=== PATIENT | female | born 1970 | race Two or more races ===

== ENCOUNTER 2016-08-22 14:14 | Outpatient (CLI) ==
--- NOTE | 2016-08-22 22:05 | MRI ---
EXAM: Lumbar spine MRI without contrast. HISTORY: Low back pain. COMPARISON: None. TECHNIQUE: Multiplanar, multisequence MR images were acquired of the lumbar spine without contrast. FINDINGS: Five lumbar-type vertebra are present. The lumbar vertebra are normal in height, alignme nt and intrinsic bone marrow signal. Marginal osteophytes are present in the lumbar spine, greatest at L2-3. Conus medullaris ends at T12-L1 and has normal signal intensity. The visualized liver, spleen and kidneys are unremarkable. There are no paravertebral masses. T12-L1: The intervertebral disc is normal. L1-2: There is a minor disc bulge. L2-3: There is a mild disc bulge with a small left paracentral disc extrusion that has migrated 1.2 cm below the disc level. Minor bilateral facet arthropathy is present. There is mild left greater than right neural foraminal stenosis. L3-4: There is a minor disc bulge that minimally narrows inferior neural foramina bilaterally and m ild bilateral hypertrophic facet arthropathy and ligamentum flavum hypertrophy. There is minor righ t and mild left neural foraminal stenosis. L3-4: There is a minor disc bulge and mild bilateral facet hypertrophy with mild left and minor rig ht foraminal stenosis. L4-5: There is a minor disc bulge and mild bilateral hypertrophic facet arthropathy and ligamentum flavum hypertrophy and minor bilateral foraminal stenosis. L5-S1: There is a minor posterior disc bulge and bilateral facet arthropathy. IMPRESSION: 1. Mild thoracic degenerative spondylosis without central canal stenosis. 2. Moderate left paracentral disc extrusion L2-3 that has migrated below the disc level.
== END 2016-08-22 14:15 | disposition home or self-care (01) ==
LOC: RAD 14:14
PROVIDERS: ATTEND Physician Assistant
DX: M54.5 Low back pain (principal)

== ENCOUNTER 2017-07-04 13:00 | Outpatient (RCR) ==
--- NOTE | 2017-06-15 16:30 | RS.OPPTEV2 ---
Date of Note: 06/14/17 Visit #: 1 Date of Evaluation: 04/21/16 Date of Onset/Injury/Change in Status: 08/04/15 Surgery Performed?: No Treatment Diagnosis: Neck pain and Left UE radiculopathy History of Condition/Mechanism of Injury:: Pt reports problems with her neck and back since she was young. She attended Outpatient therapy a year ago for neck pain and radiating symptoms and had good results. States symptoms started to return again over the last few months. States on June 03, 2017 she rolled over in bed and felt a pop from mid thoracic all the way up to the base of the skull and she instantly became sore. Prior Level of Function.....Patient was independent with: ADL's, Self Care, Work /Vocation, Caregiving, Ambulation/Mobility, Community Integration/Access Functional Limitations: Sleep, ADL's, Reaching, Pushing, Lifting, Carrying, Sitting Current Subjective/complaints:: Patient reports her symptoms are not as bad now as they were last year. States she wanted to go ahead and address them before they get worse. States Xrays show more thinning of the disc space. States she just started having tingling in the left thumb and slight beginning of tingling into the lateral side of the index finger. 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 She has headaches that began approximately three months ago. States they are not daily, but when she gets them, they last a few days. States some head movement with rotation is limited and sporadically will cause pain. States she wakes up with neck pain and stiffness every morning. States it has been worse in the last 4-5 months. Medical History Medical History: Hypertension, Arthritis Smoking Status: Current every day smoker Hx Home Medications: Mobic,Flexeril, Adderall Patient's Goals: Her goal is to get relief of symptoms. Pain Assessment - Pain Description Pain Location: Neck Current Pain Intensity: 2/10 Worst Pain Intensity: 9/10 Functional Outcome Measure Neck Disability Index: 16 - G Codes & Severity Modifier G Codes & Modifier: NA Source of G Code score: NA Observation - Observation Posture: Forward Head, Rounded Shoulders Handedness: Right - ROM Comments: Cervical flexion is WFL's. States head feels heavy upon returning to neutral from flexion. Extension is WFL's. Cervical rotation to the left is slightly limited compared to the right. Bilateral UE AROM is WFL's. - Strength Comments: Cervical spine strength is generally 4+/5. Right serratus anterior 4/ 5. Left 5/5. All else of bilateral UE 5/5. Medical Support Assistant Strength Left Hand Medical Support Assistant Strength: 60 lbs. Right Hand Medical Support Assistant Strength: 56 lbs. Dynamometer Testing Position: 2nd Position Palpation Comments:: Patient with tenderness along bilateral upper traps and along the medial borders of the scapula. Also describes tenderness with central PA's at C6-T3. Demonstrates moderate muscle guarding along bilateral upper traps. Reports no tenderness at the suboccipital myofascia or cervical paraspinals. Sensation - Sensation Comments: Light numbness in the left thumb, all else intact. Interventions - Exercise/Activities/Manual Therapy Exercises/Activities: Pt instructed in exercises for home of pec stretch in a corner or doorway, scapular retraction, and given red and green theraband for resisted shouder horizontal abduction and forward punch (serratus anterior). Discussed computer station/office set up to reduce flexion and strain on the neck. Manual Therapy: na HOME EXERCISE PROGRAM: pec stretch in a corner or doorway, scapular retraction, and given red and green theraband for resisted shouder horizontal abduction and forward punch (serratus anterior). - Charges Timed Code Treatment Minutes: 0 Total Treatment Time: 45 mins Procedures billed for this date of service:: JIMMY Henley Assessment Assessment: Patient presents to therapy with a diagnosis of Cervical spondylosis with radiculopathy. She reports neck pain with radiating symptoms in the left thumb. She reports headaches and waking up daily with neck pain and stiffness. She demonstrates moderate increased muscle tone in bilateral upper traps and exhibits less strength of the right serratus anterior. She demonstrates good potential to benefit from modalities, manual/mechanical traction to reduce symptoms, and education and exercises for postural and scapula stability to prevent symptoms from reoccurring. Patient Education: Education of diagnosis, Body/Joint mechanics, Home Exercise Program, Home Safety, Activity Modification, Education of Plan of Care Rehab Potential: Good Short Term Goals Goal #1: Pt to report no symptoms into left UE. Goal to be met by: 06/29/17 Goal #2: Patient independent and compliant with HEP. Goal to be met by: 06/29/17 Goal #3: Right serratus anterior 5/5. Goal to be met by: 06/29/17 Goal #4: Pt to demonstrate good postural awareness. Goal to be met by: 06/29/17 Urban Planning Professor Goals Goal #1: Pt knows HEP and to continue ex's at home to maintain level of function. Goal to be met by: 07/25/17 Goal #2: Score on Neck Disability Index score improved to 4. Goal to be met by: 07/25/17 Goal #3: Pt to report minimal to no neck pain upon waking each day. Goal to be met by: 07/25/17 Goal #4: Pt able to perform daily work and home activities without neck pain. Goal to be met by: 07/25/17 Plan - Treatment to be Provided Procedures: Therapeutic Exercises, Therapeutic Activity, Manual Therapy, Massage , Patient Education Modalities: Ultrasound/Phonophoresis, Cryotherapy, Hot Packs, Mechanical Traction (cervical ) - Treatment Plan Frequency: 2-3 X week Duration: 4 weeks ORDER # VISITS AND/OR THROUGH DATE: 07/25/17 - Treatment Code (1) Neck pain Code(s): M54.2 - CERVICALGIA Comments: M54.2 (2) Left hand paresthesia Code(s): R20.2 - PARESTHESIA OF SKIN Comments: R20.2 (3) Cervical spondylosis with radiculopathy Code(s): M47.22 - OTHER SPONDYLOSIS WITH RADICULOPATHY, CERVICAL REGION Comments: M47.22
--- NOTE | 2017-06-15 16:38 | RS.OPPTDN ---
Subjective Date of Note: 06/15/17 Visit #: 2 Date of Evaluation: 04/21/16 Treatment Diagnosis: Neck pain and Left UE radiculopathy Current Subjective/complaints:: Patient states she has worked with the therabands a little but has not had a lot of time to perform all the exercises given for HEP. - Treatment Modality: Ultrasound Parameters/Method Applied: 1.5 w/cm2 continuous X 10 mins to bilateral upper traps and cervical parspinals prior to traction. - Heat/Cryotherapy Treatment: Hot Pack (X 15 mins to cervical spine in sitting) - Traction Treatment Method: Mechanical, Intermittent, Cervical Patient Position: Supine Amount of Force Applied: 12-13 lbs. Hold Time: 30 sec Rest Time: 5 sec Duration of treatment: 15 mins Interventions - Exercise/Activities/Manual Therapy Exercises/Activities: Patient performed lat pull and scapular retraction with green theraband X 20 reps each. Performed pec major stretch in doorway. Performed wall angels (short range of motion with UE's.) Discussed posture and benefit of core strengthening with exercises such as yoga. Total minutes of Exercise: X 14 mins Manual Therapy: na HOME EXERCISE PROGRAM: pec stretch in a corner or doorway, scapular retraction, and given red and green theraband for resisted shouder horizontal abduction and forward punch (serratus anterior). - Charges Timed Code Treatment Minutes: 24 mins Total Treatment Time: 54 mins Procedures billed for this date of service:: hp, US, mechanical tx, ex Assessment: Patient is very receptive to advice and instruction for exercises. She tolerated traction fine today and demonstrates good potential to get relief of symptoms. Patient Education: Education of diagnosis, Body/Joint mechanics, Home Exercise Program, Activity Modification, Education of Plan of Care Patient demonstrates compliance with HEP?: Yes Short Term Goals Goal #1: Pt to report no symptoms into left UE. Goal to be met by: 06/29/17 Goal #2: Patient independent and compliant with HEP. Goal to be met by: 06/29/17 Goal #3: Right serratus anterior 5/5. Goal to be met by: 06/29/17 Goal #4: Pt to demonstrate good postural awareness. Goal to be met by: 06/29/17 Care Home Goals Goal #1: Pt knows HEP and to continue ex's at home to maintain level of function. Goal to be met by: 07/25/17 Goal #2: Score on Neck Disability Index score improved to 4. Goal to be met by: 07/25/17 Goal #3: Pt to report minimal to no neck pain upon waking each day. Goal to be met by: 07/25/17 Goal #4: Pt able to perform daily work and home activities without neck pain. Goal to be met by: 07/25/17 Plan PLAN OF CARE EXPIRES ON:: 07/25/17 ORDER # VISITS AND/OR THROUGH DATE: 07/25/17 PLAN: Progress traction and postural exercises.
--- NOTE | 2017-06-20 14:34 | RS.OPPTDN ---
Subjective Date of Note: 06/20/17 Visit #: 4 Date of Evaluation: 04/21/16 Treatment Diagnosis: Neck pain and Left UE radiculopathy Current Subjective/complaints:: Patient reports an increase in discomfort the evening after last session. States traction may have aggravated pain, but feels it will help overall. Pain Assessment - Pain Description Pain Location: neck Pain Description: Tightness, Aching Current Pain Intensity: mild Other Comments regarding Pain:: States pain is worse in the evening. - Treatment Modality: Ultrasound Parameters/Method Applied: [id number] at 1.5w/cm2 to the bilateral cervical paraspinals and mid traps. Patient Position: Sitting - Heat/Cryotherapy Treatment: Hot Pack ([id number] to the c-spine prior to US and TX. Patient in sitting. ) - Traction Treatment Method: Mechanical, Intermittent, Cervical Patient Position: Supine Amount of Force Applied: 13# Hold Time: 30sec Rest Time: 5sec Duration of treatment: 15mins Interventions - Exercise/Activities/Manual Therapy Exercises/Activities: Reviewed HEP. Assisted cervical lateral flexion stretching. Began postural correction at wall and isometric cervical retraction with pillow at wall. Scapular retraction. Total minutes of Exercise: 12mins Manual Therapy: na HOME EXERCISE PROGRAM: pec stretch in a corner or doorway, scapular retraction, and given red and green theraband for resisted shouder horizontal abduction and forward punch (serratus anterior). - Charges Timed Code Treatment Minutes: 24mins Total Treatment Time: 64mins Procedures billed for this date of service:: HP, US, TX mechanical, EX Assessment: Patient attentive to education and seems motivated to work on HEP. Patient Education: Body/Joint mechanics, Home Exercise Program Patient demonstrates compliance with HEP?: Yes Short Term Goals Goal #1: Pt to report no symptoms into left UE. Goal to be met by: 06/29/17 Goal #2: Patient independent and compliant with HEP. Goal to be met by: 06/29/17 Progress towards Goal:: Progressing Goal #3: Right serratus anterior 5/5. Goal to be met by: 06/29/17 Goal #4: Pt to demonstrate good postural awareness. Goal to be met by: 06/29/17 Progress towards Goal:: Progressing Funeral Director/Embalmer Goals Goal #1: Pt knows HEP and to continue ex's at home to maintain level of function. Goal to be met by: 07/25/17 Goal #2: Score on Neck Disability Index score improved to 4. Goal to be met by: 07/25/17 Goal #3: Pt to report minimal to no neck pain upon waking each day. Goal to be met by: 07/25/17 Goal #4: Pt able to perform daily work and home activities without neck pain. Goal to be met by: 07/25/17 Plan PLAN OF CARE EXPIRES ON:: 07/25/17 ORDER # VISITS AND/OR THROUGH DATE: 07/25/17 PLAN: Continue modalites and progress postural exercise to reduce pain and increase functional activity level.
--- NOTE | 2017-06-22 15:45 | RS.OPPTDN ---
Subjective Date of Note: 06/22/17 Visit #: 4 Date of Evaluation: 04/21/16 Treatment Diagnosis: Neck pain and Left UE radiculopathy Current Subjective/complaints:: Patient reports a different pain in the right mid scap. States she had pain in this area in the evening following last session , which radiated up to right occipit. At end of treatment patient reports "not much change". Pain Assessment - Pain Description Current Pain Intensity: 6/10 - Treatment Modality: Ultrasound Parameters/Method Applied: [id number] at 1.5w/cm2 to the right trap trigger point and along the right scapular border. Patient Position: Sitting - Heat/Cryotherapy Treatment: Hot Pack ([id number] to the c-spine prior to US and TX. Patient in sitting. ) - Traction Treatment Method: Mechanical, Intermittent, Cervical Patient Position: Supine Amount of Force Applied: 13# Hold Time: 35sec Rest Time: 5sec Duration of treatment: 15mins Interventions - Exercise/Activities/Manual Therapy Exercises/Activities: Discussed HEP. Advised patient to rest and stretch today and resume postural strengthening tomorrow as tolerated. Manual Therapy: Trigger point release to the right mid scap musculature. Total minutes of Manual Therapy: 3mins HOME EXERCISE PROGRAM: pec stretch in a corner or doorway, scapular retraction, and given red and green theraband for resisted shouder horizontal abduction and forward punch (serratus anterior). - Charges Timed Code Treatment Minutes: 15mins Total Treatment Time: 50mins Procedures billed for this date of service:: HP, US, TX mechanical Assessment: Patient with changing pain patterns. Continued low traction per PT direction. Will refer patient back to physician. Comments: Patient seen by PT and decided to continue treatment today including low weight cervical traction. At end of treatment session, patient advised to contact physician if pain and radiating symptoms persist. Patient demonstrates compliance with HEP?: Yes Short Term Goals Goal #1: Pt to report no symptoms into left UE. Goal to be met by: 06/29/17 Progress towards Goal:: Progressing Goal #2: Patient independent and compliant with HEP. Goal to be met by: 06/29/17 Progress towards Goal:: Progressing Goal #3: Right serratus anterior 5/5. Goal to be met by: 06/29/17 Goal #4: Pt to demonstrate good postural awareness. Goal to be met by: 06/29/17 Progress towards Goal:: Progressing Assisted Goals Goal #1: Pt knows HEP and to continue ex's at home to maintain level of function. Goal to be met by: 07/25/17 Goal #2: Score on Neck Disability Index score improved to 4. Goal to be met by: 07/25/17 Goal #3: Pt to report minimal to no neck pain upon waking each day. Goal to be met by: 07/25/17 Goal #4: Pt able to perform daily work and home activities without neck pain. Goal to be met by: 07/25/17 Plan PLAN OF CARE EXPIRES ON:: 06/24/17 ORDER # VISITS AND/OR THROUGH DATE: 07/25/17 PLAN: Continue gentle cervical traction and resume postural strengthening as tolerated.
--- NOTE | 2017-06-27 16:22 | RS.OPPTDN ---
Subjective Date of Note: 06/27/17 Visit #: 5 Date of Evaluation: 04/21/16 Treatment Diagnosis: Neck pain and Left UE radiculopathy Current Subjective/complaints:: Patient reports neck pain and left UE symptoms have decreased to mild. States thumb and first finger of the left hand continue to be desensitized but she does not expect them to change at this point. States she was lifting a bag of salt and felt a pop at the upper cervical spine/ occiput which caused her to palpate a "knot" on the right side. Reports decrease in tenderness following treatment. Pain Assessment - Pain Description Pain Location: cervical paraspinals and upper traps Pain Description: Tightness Pain Description: tenderness Current Pain Intensity: mild - Treatment Modality: Ultrasound Parameters/Method Applied: [id number] at 1.5w/cm2 to the bilateral cervical paraspinals and trap trigger points. Patient Position: Sitting - Heat/Cryotherapy Treatment: Hot Pack (HP [id number] to c-spine prior to US and MT. Patient in sitting. ), Cryotherapy (x5mins Ice massage to the right upper cervical paraspinals. Patient in sitting. ) Interventions - Exercise/Activities/Manual Therapy Exercises/Activities: Assisted lateral flexion and levator scap stretch. Isometric cervical retraction. Total minutes of Exercise: 5mins Manual Therapy: Trigger point release to the right upper cervical paraspinals and bilateral trap trigger points. Myosfasical release along the traps and cervical paraspinals. Total minutes of Manual Therapy: 10mins HOME EXERCISE PROGRAM: pec stretch in a corner or doorway, scapular retraction, and given red and green theraband for resisted shouder horizontal abduction and forward punch (serratus anterior). - Objective Findings Observations,measurements,etc.: Patient seen by PT and area at upper right cervical paraspinals is slightly swollen and presents as a muscle spasm. - Charges Timed Code Treatment Minutes: 32mins Total Treatment Time: 50mins Procedures billed for this date of service:: HP, US, MT Assessment: Patient responds to treatment today and reports a reduction in pain. Patient Education: Home Exercise Program, Activity Modification Comments: Instructed in ice massage to reduce muscle selling/spasms. Patient demonstrates compliance with HEP?: Yes Short Term Goals Goal #1: Pt to report no symptoms into left UE. Goal to be met by: 06/29/17 Progress towards Goal:: Progressing Goal #2: Patient independent and compliant with HEP. Goal to be met by: 06/29/17 Progress towards Goal:: Met Goal #3: Right serratus anterior 5/5. Goal to be met by: 06/29/17 Goal #4: Pt to demonstrate good postural awareness. Goal to be met by: 06/29/17 Progress towards Goal:: Met Correction Goals Goal #1: Pt knows HEP and to continue ex's at home to maintain level of function. Goal to be met by: 07/25/17 Progress towards goal: Progressing Goal #2: Score on Neck Disability Index score improved to 4. Goal to be met by: 07/25/17 Goal #3: Pt to report minimal to no neck pain upon waking each day. Goal to be met by: 07/25/17 Progress towards goal: Progressing Goal #4: Pt able to perform daily work and home activities without neck pain. Goal to be met by: 07/25/17 Progress towards goal: Progressing Plan PLAN OF CARE EXPIRES ON:: 07/25/17 ORDER # VISITS AND/OR THROUGH DATE: 07/25/17 PLAN: Continue manual therapy and progress exericse to reduce pain and increase functional activity level.
--- NOTE | 2017-06-29 16:12 | RS.CXNS ---
Date of scheduled appointment: 06/29/17 Type: No Show
--- NOTE | 2017-07-04 15:33 | RS.OPPTDN ---
Subjective Date of Note: 07/04/17 Visit #: 6 Date of Evaluation: 04/21/16 Treatment Diagnosis: Neck pain and Left UE radiculopathy Current Subjective/complaints:: Patient reports she has had more soreness the past week that she has not attended. States her appointment has been moved up. States she has good and bad days and not sure of her progress. Agrees to continue HEP after discharge due to lack of progress. Pain Assessment - Pain Description Pain Location: neck, headache Current Pain Intensity: 5/10 Other Comments regarding Pain:: Reports she continues to have daily headaches but they are not as intense. Reports continued numbness left hand thumb and first finger. - Treatment Modality: Ultrasound Parameters/Method Applied: [id number] 1.5w/cm2 to the bilateral cervical paraspinals. Patient Position: Sitting - Heat/Cryotherapy Treatment: Hot Pack ([id number] to the cervical spine prior to TX and US. Patient in sitting. ) - Traction Treatment Method: Mechanical, Intermittent, Cervical Patient Position: Supine Amount of Force Applied: 18# Hold Time: 30sec Rest Time: 5sec Duration of treatment: 15mins Interventions - Exercise/Activities/Manual Therapy Exercises/Activities: Assisted lateral flexion and levator scap stretch. Isometric cervical retraction. Reviewed postural correction of scapular retraction with green theraband and modified wall angels. 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 Total minutes of Exercise: 12mins Manual Therapy: NA HOME EXERCISE PROGRAM: pec stretch in a corner or doorway, scapular retraction, and given red and green theraband for resisted shouder horizontal abduction and forward punch (serratus anterior). 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 - Charges Timed Code Treatment Minutes: 24mins Total Treatment Time: 59mins Procedures billed for this date of service:: HP, TX mechanical, US, EX Assessment: Patient with continued radicular symptoms in the left UE, but maintains equal manager employment strength. She will need to continue postural exercises following discharge and follow-up with physician. Patient Education: Home Exercise Program, Activity Modification, Education of Plan of Care Patient demonstrates compliance with HEP?: Yes Short Term Goals Goal #1: Pt to report no symptoms into left UE. Goal to be met by: 06/29/17 Progress towards Goal:: No Change Goal #2: Patient independent and compliant with HEP. Goal to be met by: 06/29/17 Progress towards Goal:: Met Goal #3: Right serratus anterior 5/5. Goal to be met by: 06/29/17 Progress towards Goal:: Progressing Goal #4: Pt to demonstrate good postural awareness. Goal to be met by: 06/29/17 Progress towards Goal:: Met Skilled Nursing Goals Goal #1: Pt knows HEP and to continue ex's at home to maintain level of function. Goal to be met by: 07/25/17 Progress towards goal: Met Goal #2: Score on Neck Disability Index score improved to 4. Goal to be met by: 07/25/17 Progress towards goal: Not Met Comments: Reports no change daily activities. Goal #3: Pt to report minimal to no neck pain upon waking each day. Goal to be met by: 07/25/17 Progress towards goal: Progressing Goal #4: Pt able to perform daily work and home activities without neck pain. Goal to be met by: 07/25/17 Progress towards goal: Progressing Plan PLAN OF CARE EXPIRES ON:: 07/25/17 ORDER # VISITS AND/OR THROUGH DATE: 07/25/17 PLAN: Discharge with HEP.
== END 2017-07-05 ==
PROVIDERS: ATTEND Nurse Practitioner Family
DX: M47.22 Other spondylosis with radiculopathy, cervical region (principal); R20.0 Anesthesia of skin

== ENCOUNTER 2017-09-25 08:04 | Outpatient (CLI) | END 2017-09-25 08:05 | disposition home or self-care (01) | LOC: LAB 08:04 | PROVIDERS: ATTEND Physician Assistant | DX: I10 Essential (primary) hypertension (principal); Z71.6 Tobacco abuse counseling | CPT/HCPCS: 36415; 80053; 80061; 85025 ==